=== PATIENT | female | born 1980 | race African-American/Black ===

== ENCOUNTER 2016-09-07 13:11 | Emergency (ER) | payer MEDICAID ==
[~2016-09-07] VITALS: Ht 170.2 cm; Wt 74.5 kg
[2016-09-07 13:16] VITALS: BP 140/82; TEMP 97.6
[2016-09-07] MEDS ORDERED: NORCO 325 MG-51 TAB PO (13:38)
[2016-09-07] MEDS ORDERED: PEN-VEE K500 MG PO (13:38)
[2016-09-07 13:50] VITALS: PULSE 72
== END 2016-09-07 13:51 | disposition home or self-care (01) ==
LOC: COL.ER 13:11
DX: K08.89 Other specified disorders of teeth and supporting structures (principal); F17.210 Nicotine dependence, cigarettes, uncomplicated; I10 Essential (primary) hypertension

== ENCOUNTER 2016-09-20 19:02 | Emergency (ER) | payer MEDICAID ==
[~2016-09-20] VITALS: Ht 170.2 cm; Wt 74.5 kg
[~2016-09-20 19:02] MED LIST: NORCO 325 MG-51 TAB PO; PEN-VEE K500 MG PO
[2016-09-20 19:07] VITALS: BP 144/85; PULSE 61; TEMP 98.4
[2016-09-21] MEDS ORDERED: ULTRAM 50MG TAB50 MG PO (16:22)
[2016-09-21] MEDS ORDERED: AMOXICILLIN 50500 MG PO (16:22)
== END 2016-09-20 20:30 | disposition left against medical advice (07) ==
LOC: COL.ER 19:02
DX: K08.89 Other specified disorders of teeth and supporting structures (principal); Z53.21 Procedure and treatment not carried out due to patient leaving prior to being seen by health care provider

== ENCOUNTER 2016-09-21 15:43 | Emergency (ER) | payer MEDICAID ==
[~2016-09-21] VITALS: Ht 170.2 cm; Wt 74.5 kg
[2016-09-21 15:46] VITALS: BP 142/94; TEMP 99.4
[2016-09-21] MEDS ORDERED: AMOXICILLIN 50500 MG PO (16:22)
[2016-09-21] MEDS ORDERED: ULTRAM 50MG TAB50 MG PO (16:22)
[2016-09-21 16:31] VITALS: PULSE 88
== END 2016-09-21 16:32 | disposition home or self-care (01) ==
LOC: COL.ER 15:43
DX: K08.89 Other specified disorders of teeth and supporting structures (principal); I10 Essential (primary) hypertension; F17.210 Nicotine dependence, cigarettes, uncomplicated; K03.81 Cracked tooth

== ENCOUNTER 2017-01-11 17:18 | Emergency (ER) | payer MEDICAID ==
[~2017-01-11] VITALS: Ht 172.7 cm; Wt 89.5 kg
[~2017-01-11 17:18] MED LIST changes: +AMOXICILLIN 50500 MG PO; +ULTRAM 50MG TAB50 MG PO
[2017-01-11 17:21] VITALS: BP 121/65; PULSE 85; TEMP 98.7
[2017-01-11] MEDS ORDERED: BACTRIM DS 8001 TAB PO (18:28)
[2017-01-11] MEDS ORDERED: NORCO 325 MG-51 TAB PO (18:28)
== END 2017-01-11 18:36 | disposition home or self-care (01) ==
LOC: COL.ER 17:18
DX: L02.411 Cutaneous abscess of right axilla (principal); F17.210 Nicotine dependence, cigarettes, uncomplicated; Z87.59 Personal history of other complications of pregnancy, childbirth and the puerperium